=== PATIENT | female | born 1960 | race Two or more races ===

== ENCOUNTER 2021-02-26 11:00 | Outpatient (AMBR) | payer OTHER, MEDICAID, SELFPAY ==
--- NOTE | 2021-02-26 11:18 | PTNOTE_ITS ---
PT OP Initial Eval Patient Information Visit Reasons: low back pain Medical Diagnosis: M54.40 Treatment Dx #1: LBP with radiculopathy Start of Care: 02/26/21 Date of Onset: 5 months ago Initial Assessment Subjective Pt is 60 yr old nicaraguan speaking female who reports onset of L sided LBP that radiates down the L LE x5 months. Increased pain with bending, lifting, prolonged sitting and walking and the L calf mm hurts. Pt has difficulty with HH chores due to the L lower LE pain. PMH: HTN, DM, OA, gastritis Imaging: X-ray of L/s in EMR Pt goal: to lessen the LBP and LE pain Objective Trunk ArOM: B SB 50% of normal with pain L>R Extension: 10% with pain around L4-5, L5-S1 centrally Flexion: 8 from floor with LBP B rotation: 60% L SLR: 45 deg with posterior knee neural tension, LBP LE strength: B hamstrings: 4-/5 Quads 4-/5 Hip abd/add 4-/5 TTP: moderate paraspinals L4-5 and diffusely L3-S1 Neuro: L SLR: positive Assessment Pt presents with trunk flexion and extension sensitivity and overlying myofascial pain and TTP around L3-5. Pt has lumbar extensor atrophy and pain with prolonged standing. Pt has poor core activation. These findings are consistent with lower lumbar disc irritation/dysfunction and stenosis. Pt requires skilled therapy in order to decrease pain and improve standing tolerance and has fair rehab potential. Short Term and [employer] Goals 1. Ind with HEP 2. Improved standing tolerance to 30 minutes with <=4/10 LBP 3. Pt will improve HH chore tolerance to 30 minutes Treatment Plan 1. Manual therapy 2. Therex 3. Modalities as indicated, moist heat, ice, estim, mechanical traction Frequency and Duration 2x a week for 6 weeks Certification Dates: 02/26/21 to 05/27/21 Office Procedures PT Treatments PT Date of Service: 02/26/21 OP PT Eval Mod Complex 30 minutes: Yes
== END 2021-03-01 23:59 | disposition home or self-care (01) ==
PROVIDERS: PCP Internal Medicine Rheumatology; Referring Provider Internal Medicine Rheumatology; Visit Provider Nurse Practitioner Family
DX: M54.42 Lumbago with sciatica, left side (principal); M54.41 Lumbago with sciatica, right side; I10 Essential (primary) hypertension; E11.9 Type 2 diabetes mellitus without complications
CPT/HCPCS: 97162

== ENCOUNTER 2021-03-02 14:49 | Outpatient (AMBR) | payer OTHER, SELFPAY ==
--- NOTE | 2021-03-02 16:20 | PT.ODAYNRPT ---
PT Outpatient Daily Note Date of Service: 03/02/2021 OP Daily Note Visit Reasons: low back pain Outpatient Physical Therapy Treatment Date: 03/02/21 Subjective: Pt east timorese speaking reports she is feeling little pain and points behind her L leg from glutes to calfs. Objective: See flow chart for therex. MT: STM w/ graston x 7 mins. Mechanical Traction: L/S 25 lbs x 7 mins Assessment: Pt had mod tissue and nerve irritability to L hip. Pt tolerated modified piriformis stretch well. Modified the piriformis stretch from supine to sitting due to muscle tightness around L hip. Pt had good response to MT and mechanical traction w/ reduced pain. Plan: Cont POC per PT. Length of Time (minutes) of Treatment: 30 Minutes Office Procedures PT Treatments PT Date of Service: 03/02/21 Therapeutic Exercise 30 minutes: Yes
== END 2021-03-31 23:59 | disposition home or self-care (01) ==
PROVIDERS: PCP Internal Medicine Rheumatology; Referring Provider Internal Medicine Rheumatology; Visit Provider Internal Medicine Rheumatology
DX: M54.42 Lumbago with sciatica, left side (principal); M54.41 Lumbago with sciatica, right side
CPT/HCPCS: 97110

== ENCOUNTER → 2024-05-30 | Outpatient (CLI) | payer OTHER, MEDICAID, SELFPAY ==
--- NOTE | 2024-05-30 08:00 | XR_ITS ---
Examination: Screening digital mammography, bilateral Computer aided detection 3-D breast Tomosynthesis, bilateral Date and time of exam: May 30, 2024 0748 hours Compared to mammograms dating to 01/14/2017 Indication: Screening Technique: Nonmagnified MLO, CC views of the breasts to been obtained, reconstructed from 3-D Tomosynthesis images. R2 computer aided detection program utilized for evaluation of suspicious masses and/or abnormal calcifications. 3-D Tomosynthesis images obtained. Findings: Scattered areas of fibroglandular density. 4 mm nodule upper outer right breast anterior depth Benign calcifications Impression: BI-RADS Category 0: Incomplete: Need additional imaging evaluation 4 mm nodule upper outer right breast anterior depth, recommend follow-up spot tomographic views of this nodule as well as right breast sonography to complete the workup.
== END | disposition home or self-care (01) ==
LOC: CDIM 07:39
PROVIDERS: Referring Provider Physician Assistant; Visit Provider Physician Assistant
DX: Z12.31 Encounter for screening mammogram for malignant neoplasm of breast (principal); N63.11 Unspecified lump in the right breast, upper outer quadrant
CPT/HCPCS: 77063; 77067

== ENCOUNTER 2024-05-31 11:30 | Outpatient (RCR) | payer OTHER, MEDICAID, SELFPAY ==
--- NOTE | 2024-05-24 11:36 | PT.OIERPT ---
PT OP Initial Eval Patient Information Outpatient Physical Therapy Treatment Date: 05/24/24 Visit Reasons: Sciatica left side Medical Diagnosis: M54.32 Treatment Dx #1: LBP Start of Care: 05/24/24 Date of Onset: 2020 Smoking Status Smoking Status: Never smoker Initial Assessment Subjective: Pt is 63 yr old yoruba speaking female who reports onset of L sided LBP that radiates down the L LE since 2020. Increased pain with bending, lifting, prolonged sitting and walking and the L calf mm hurts. Pt has difficulty with HH chores due to the L lower LE pain. PMH: HTN, DM, OA, gastritis Imaging: X-ray of L/s in EMR Possible spondylolysis involving the pars interarticulares of L4 Pt goal: to lessen the LBP and LE pain Objective: Trunk ArOM: B SB 50% of normal with pain L>R Extension: unable due to pain around L4-5, L5-S1 centrally Flexion: 15 from floor with hands on knees B rotation: 60% L SLR: 45 deg with posterior knee neural tension, LBP LE strength: B hamstrings: 4-/5 Quads 4-/5 Hip abd/add 4-/5 TTP: moderate paraspinals L4-5 and diffusely L3-S1 Neuro: B SLR: positive Assessment: Pt presents with extension sensitivity and overlying myofascial pain and TTP around L3-5. Pt has lumbar extensor atrophy and pain with prolonged standing. Pt has poor core activation. 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 Pt requires skilled therapy in order to decrease pain and improve standing tolerance and has poor rehab potential. Short Term and [facility] Goals 1. Ind with HEP 2. Improved standing tolerance to 30 minutes with <=4/10 LBP 3. Pt will improve HH chore tolerance to 30 minutes Treatment Plan 60 day POC 1. Manual therapy 2. Therex 3. Modalities as indicated, moist heat, ice, estim, mechanical traction Frequency and Duration: 1-2x a week for 6 weeks Certification Dates: 05/24/24 to 07/20/24 Procedure Charges OP PT Eval Mod Complex 30 minutes: Yes
--- NOTE | 2024-05-31 13:00 | PT.ODAYNRPT ---
PT Outpatient Daily Note OP Daily Note Outpatient Physical Therapy Treatment Date: 05/31/24 Visit Reasons: Sciatica left side Subjective: Same as eval Objective: See F/S for therex MT: STM L/S with flexbar x7' Assessment: Min/mod TTP of L/S with manual therapy Plan: Continue per POC Length of Time (minutes) of Treatment: 30 Minutes Procedure Charges Therapeutic Exercise 30 minutes: Yes
== END 2024-06-01 23:59 | disposition home or self-care (01) ==
LOC: CPTX 11:30
PROVIDERS: PCP Physician Assistant; Referring Provider Physician Assistant; Visit Provider Physician Assistant
DX: M54.42 Lumbago with sciatica, left side (principal); I10 Essential (primary) hypertension; E11.9 Type 2 diabetes mellitus without complications
CPT/HCPCS: 97110; 97162

== ENCOUNTER 2024-06-20 15:30 | Outpatient (RCR) | payer OTHER, MEDICAID, SELFPAY ==
--- NOTE | 2024-06-07 17:26 | PT.ODAYNRPT ---
PT Outpatient Daily Note OP Daily Note Outpatient Physical Therapy Treatment Date: 06/07/24 Visit Reasons: Sciatica left side Subjective: Not much LBP today Objective: See F/S for therex MT: STM L/S with flexbar x7' Assessment: Less TTP of L/S with manual therapy today Plan: Continue per POC Length of Time (minutes) of Treatment: 30 Minutes Procedure Charges Therapeutic Exercise 30 minutes: Yes
--- NOTE | 2024-06-13 15:59 | PT.ODAYNRPT ---
PT Outpatient Daily Note OP Daily Note Outpatient Physical Therapy Treatment Date: 06/13/24 Visit Reasons: Sciatica left side Subjective: Pt reports LBP. Objective: Please see flow sheet for ther ex list. Assessment: Pt reports decrease pain with prone on elbows exercise. Plan: Continue with pOC. Length of Time (minutes) of Treatment: 30 Minutes Procedure Charges Therapeutic Exercise 30 minutes: Yes
--- NOTE | 2024-06-20 15:58 | PT.ODAYNRPT ---
PT Outpatient Daily Note OP Daily Note Outpatient Physical Therapy Treatment Date: 06/20/24 Visit Reasons: Sciatica left side Subjective: Pt reports low back has been feeling better since starting PT. Objective: Please see flow sheet for ther ex list. Assessment: Pt able to replicate repeated lumbar extension with decrease pain, pt encouraged to perform exercise for HEP pt agreed. Plan: Continue with POC. Length of Time (minutes) of Treatment: 30 Minutes Procedure Charges Therapeutic Exercise 30 minutes: Yes
== END 2024-06-29 23:59 | disposition home or self-care (01) ==
LOC: CPTX 15:30
PROVIDERS: PCP Physician Assistant; Referring Provider Physician Assistant; Visit Provider Physician Assistant
DX: M54.42 Lumbago with sciatica, left side (principal); I10 Essential (primary) hypertension; E11.9 Type 2 diabetes mellitus without complications
CPT/HCPCS: 97110

== ENCOUNTER → 2024-07-10 | Outpatient (CLI) | payer OTHER, MEDICAID, SELFPAY ==
--- NOTE | 2024-07-10 09:15 | XR_ITS ---
Examination: Breast ultrasound, unilateral, right Date and time of exam: 07/10/2024, 9:14 AM INDICATION: Abnormal screening mammogram Technique: Real-time cochran scale ultrasonographic imaging performed right breast including all 4 quadrants as well as nipple retroareolar and axillary region. Findings: Normal fibroglandular tissue. No evidence of suspicious masses or abnormal vascularity. IMPRESSION: Negative exam. BI-RADS Category 1
--- NOTE | 2024-07-10 09:45 | XR_ITS ---
Examination: Diagnostic digital mammography, unilateral, right Computer aided detection 3-D breast Tomosynthesis, unilateral Date and time of exam: 07/10/2024, 9:31 AM Comparisons: 04/08/2022 Indications: Further evaluation of abnormality seen on screening exam Technique: Nonmagnified MLO, CC views of the right breast have been obtained, reconstructed from 3-D Tomosynthesis images. R2 computer aided detection program utilized for evaluation of suspicious masses and/or abnormal calcifications. 3-D Tomosynthesis images obtained. Technologist: Findings: There are scattered areas of fibroglandular density. The previously described abnormality does not persist on spot compression views and represents superimposition of normal fibroglandular tissue. No evidence of abnormal masses or suspicious calcifications. Impression: BI-RADS category 1: Negative findings (within normal) Recommend 1 year follow-up mammogram
== END | disposition home or self-care (01) ==
PROVIDERS: PCP Physician Assistant; Referring Provider Physician Assistant; Visit Provider Physician Assistant
DX: R92.311 Mammographic fatty tissue density, right breast (principal)
CPT/HCPCS: 76641; 77061; 77065; G0279

== ENCOUNTER 2024-07-16 16:34 | Outpatient (RCR) | payer OTHER, MEDICAID, SELFPAY ==
--- NOTE | 2024-07-16 18:25 | PT.ODS1RPT ---
PT OP Progress/Discharge Note Date of Service: 07/16/24 Progress Note/DC Note Progress Note/Discharge Note: Progress Note Patient Information Visit Reasons: Left sciatica side Service Continue Service or Discharge: Continue Service Status Subjective: Pt returns to therapy after about a month break due to being out of town. Her back has been hurting on and off and she feels relief after HEP. Objective: Trunk AROM; Extension: 20% of normal with pain at end-range FB: 14 from floor TTP: min of lumbar paraspinals. MT: STM lumbar paraspinals x7' Assessment: Pt has attended the eval and 5 Rx visits with fair progress with therapy goals. She is independent with HEP which has helped reduce LBP. She would benefit from continued therapy to meet functional goals. Plan: Extend POC dates from 07/20/24 to 09/19/24 to complete visits up to 12 Procedure Charges Therapeutic Exercise 30 minutes: Yes
== END 2024-07-30 23:59 | disposition home or self-care (01) ==
LOC: CPTX 16:34
PROVIDERS: PCP Physician Assistant; Referring Provider Physician Assistant; Visit Provider Physician Assistant
DX: M54.42 Lumbago with sciatica, left side (principal); I10 Essential (primary) hypertension; E11.9 Type 2 diabetes mellitus without complications
CPT/HCPCS: 97110

== ENCOUNTER 2024-08-22 15:00 | Outpatient (RCR) | payer OTHER, MEDICAID, SELFPAY ==
--- NOTE | 2024-08-07 15:54 | PT.ODAYNRPT ---
PT Outpatient Daily Note OP Daily Note Outpatient Physical Therapy Treatment Date: 08/07/24 Visit Reasons: LEFT SCIATICA Subjective: Not much LBP today Objective: See F/S for therex MT: STM L/S with flexbar x7' Assessment: Less TTP of L/S with manual therapy today. Good demo of prone extension with low pain in L/S. Plan: Continue per POC Length of Time (minutes) of Treatment: 30 Minutes Procedure Charges Therapeutic Exercise 30 minutes: Yes
--- NOTE | 2024-08-14 17:46 | PT.ODAYNRPT ---
PT Outpatient Daily Note OP Daily Note Outpatient Physical Therapy Treatment Date: 08/14/24 Visit Reasons: LEFT SCIATICA Subjective: Not much LBP today Objective: See F/S for therex MT: STM L/S with flexbar x7' Assessment: Less TTP of L/S with manual therapy today. Good demo of prone extension with low pain in L/S. Plan: Continue per POC Length of Time (minutes) of Treatment: 30 Minutes Procedure Charges Therapeutic Exercise 30 minutes: Yes
--- NOTE | 2024-08-22 15:42 | PT.ODS1RPT ---
PT OP Progress/Discharge Note Date of Service: 08/22/24 Progress Note/DC Note Progress Note/Discharge Note: DC Note Patient Information Visit Reasons: LEFT SCIATICA Service Continue Service or Discharge: Discharge Discharge Date: 08/22/24 Status Subjective: Pt says her back has been hurting much less and she feels relief after HEP. Pt is ready to D/C from therapy Objective: Trunk AROM; Extension: 20% of normal with pain at end-range FB: 14 from floor TTP: min of lumbar paraspinals. MT: STM lumbar paraspinals x7' Assessment: Pt has attended the eval and 8 Rx visits with good progress with therapy goals. She is independent with HEP which has helped reduce LBP. Pt has much improved HH chore tolerance to about 60 mins to meet that goal. Pt has improved standing tolerance to 30 mins to meet that goal. Plan: D/C with HEP Procedure Charges Therapeutic Exercise 30 minutes: Yes
== END 2024-08-29 23:59 | disposition home or self-care (01) ==
LOC: CPTX 15:00
PROVIDERS: PCP Physician Assistant; Referring Provider Physician Assistant; Visit Provider Physician Assistant
DX: M54.42 Lumbago with sciatica, left side (principal); I10 Essential (primary) hypertension; E11.9 Type 2 diabetes mellitus without complications
CPT/HCPCS: 97110